=== PATIENT | male | born 1935 | race Caucasian/White ===

== ENCOUNTER → 2017-03-24 | Outpatient (CLI) | payer MEDICARE ==
--- NOTE | 2017-03-24 11:19 | Diagnostic Imaging Report ---
PROCEDURE:GALLBLADDER ULTRASOUND COMPARISON:None. INDICATIONS:RUQ PAIN TECHNIQUE:Grayscale and color Doppler ultrasound FINDINGS: Limited evaluation of the inferior vena cava, abdominal aorta and pancreas are unremarkable. Right liver span 13 cm. Normal echogenicity. Portal vein diameter 1 cm; normal flow direction. Calcified gallstones. Partially contracted gallbladder with a wall thickness of 5 mm. No sonographic Abraham's sign. Common bile duct diameter 4 mm. CONCLUSION: The gallbladder contains calcified stones and is partially contracted with mild wall thickening. Findings may be secondary to chronic cholecystitis/biliary dyskinesia. No evidence of acute cholecystitis. Dictated by: Chun Morrell M.D. on 03/24/2017 at 11:28 Electronically approved by: Chun Morrell M.D. on 03/24/2017 at 11:28
== END ==
LOC: US 09:29
PROVIDERS: ATTEND Surgery
DX: R10.11 Right upper quadrant pain (principal)
CPT/HCPCS: 76705